=== PATIENT | female | born 1995 | race Caucasian/White ===

== ENCOUNTER 2018-06-23 13:37 | Observation (INO) ==
[2018-06-23] MEDS ORDERED: LACTATED RINGERS 1,000 ML IV ONE ×2 (14:03→15:00)
[2018-06-23 14:54] LABS: Basophils # 0.1 10*3/uL (0.0-0.2); Basophils % 0.6 % (0.0-0.8); Eosinophils # 0.1 10*3/uL (0.0-0.87); Eosinophils % 0.9 % (0.00-10.9); Hematocrit 47.6 VOL% (35.7-47.0); Hemoglobin 17.1 GM/DL (12.0-16.0); Immature Granulocytes % 0.3 %; Immature Granulocytes Absolute 0.03 #; Lymphocytes # 0.9 10*3/uL (1.4-4.0); Lymphocytes % 7.4 % (21.3-54.2); Mean Corpuscular HGB Conc 35.9 GM/DL (32-36); Mean Corpuscular Hemoglobin 30 PG (27-34); Mean Corpuscular Volume 84.7 FL (87-102); Mean Platelet Volume 11.5 FL (9.6-12.0); Monocytes # 0.6 10*3/uL (0.11-0.8); Monocytes % 5.2 % (1.7-12.7); Neutrophils # 10.1 10*3/uL (1.4-7.4); Neutrophils % 85.6 % (38.7-73.9); Platelet Count 237 T/CUMM (130-400); Red Blood Count 5.62 MC/CUMM (3.8-5.5); Red Cell Distribution Width 13.5 % (9.3-17.3); White Blood Count 11.7 T/CUMM (4-12)
[2018-06-23 15:07] LABS: Albumin 5.2 G/DL (3.4-5.0); Calcium 9.8 MG/DL (8.5-10.1); Osmolality,Calculated 266.2 MOS/KG (273-304); Potassium 3.2 MMOL/L (3.5-5.1); Total Protein 9.7 G/DL (6.4-8.3)
[2018-06-23 15:12] LABS: Apearance,Urine Slightly Hazy (Clear); Bacteria,Urine Occasional /HPF (Few); Bilirubin,Urine Negative (Negative); Blood, Urine Negative (Negative); Glucose,Urine (UA) Negative (Negative); Ketones,Urine 80 mg/dL (Negative); Mucus,Urine Occasional /LPF (Occasional); Nitrite,Urine Negative (Negative); Protein,Urine 100 MG/DL; RBC,Urine 5 /HPF (0-4); Squamous Epithelial Cell,Urine Occasional /HPF (0-10); Urine Color Amber (Yellow); Urine Specific Gravity 1.035 (1.001-1.035); WBC,Urine 4 /HPF (0-6)
[2018-06-23] MEDS: ONDANSETRON 4 MG/2 ML VIAL IV PRN (15:19)
[2018-06-23] MEDS: LACTATED RINGERS 1,000 ML IV SCH (16:46)
[2018-06-23] MEDS: POTASSIUM CHLORIDE RIDER 10 MEQ in PREMIX 1 EACH IV PRN ×3 (16:46→22:05)
[2018-06-24] MEDS: POTASSIUM CHLORIDE RIDER 10 MEQ in PREMIX 1 EACH IV PRN (01:07)
[2018-06-24] MEDS: LACTATED RINGERS 1,000 ML IV SCH (02:18)
[2018-06-24] MEDS: ONDANSETRON 4 MG/2 ML VIAL IV PRN (04:01)
[2018-06-24 07:18] VITALS: BP 85/49
== END 2018-06-24 11:00 | disposition home or self-care (01) ==
LOC: N.LDOUT 13:37 → N.OB 13:37 → UNDODEPREF 06-24 11:44
PROVIDERS: ADMIT Specialist; ATTEND Specialist

== ENCOUNTER 2018-07-15 14:34 | Inpatient (IN) ==
[2018-07-15] MEDS ORDERED: LACTATED RINGERS 1,000 ML IV ONE ×2 (15:04→16:00)
[2018-07-15 15:08] LABS: Basophils # 0.1 10*3/uL (0.0-0.2); Basophils % 0.5 % (0.0-0.8); Eosinophils # 0.4 10*3/uL (0.0-0.87); Eosinophils % 3.8 % (0.00-10.9); Hematocrit 42.3 VOL% (35.7-47.0); Hemoglobin 14.8 GM/DL (12.0-16.0); Immature Granulocytes % 0.4 %; Immature Granulocytes Absolute 0.04 #; Lymphocytes # 1.1 10*3/uL (1.4-4.0); Lymphocytes % 10.3 % (21.3-54.2); Mean Corpuscular Hemoglobin 31 PG (27-34); Mean Platelet Volume 10.5 FL (9.6-12.0); Monocytes # 0.5 10*3/uL (0.11-0.8); Monocytes % 4.5 % (1.7-12.7); Neutrophils # 8.4 10*3/uL (1.4-7.4); Neutrophils % 80.5 % (38.7-73.9); Platelet Count 217 T/CUMM (130-400); Red Blood Count 4.86 MC/CUMM (3.8-5.5); Red Cell Distribution Width 14.1 % (9.3-17.3); White Blood Count 10.4 T/CUMM (4-12)
[2018-07-15 15:26] LABS: Albumin 3.9 G/DL (3.4-5.0); Bilirubin,Total 0.7 MG/DL (0.2-1.0); Calcium 9.3 MG/DL (8.5-10.1); Potassium 3.4 MMOL/L (3.5-5.1); Total Protein 8.1 G/DL (6.4-8.3)
[2018-07-15] MEDS: ONDANSETRON 4 MG/2 ML VIAL IV PRN (16:15)
[2018-07-15] MEDS: LACTATED RINGERS 1,000 ML IV SCH (17:15)
[2018-07-15] MEDS ORDERED: DOCUSATE SODIUM 100 MG CAPSULE PO PRN (17:53)
[2018-07-15] MEDS ORDERED: ACETAMINOPHEN 325 MG TABLET PO PRN (17:54)
[2018-07-15 23:05] LABS: Apearance,Urine CLOUDY (Clear); Bilirubin,Urine Negative (Negative); Blood, Urine Negative (Negative); Glucose,Urine (UA) Negative (Negative); Ketones,Urine Negative (Negative); Nitrite,Urine Negative (Negative); Protein,Urine Negative; Squamous Epithelial Cell,Urine Occasional /HPF (0-10); Urine Color Yellow (Yellow); Urine Specific Gravity 1.014 (1.001-1.035); WBC,Urine 2 /HPF (0-6)
[2018-07-16] MEDS: LACTATED RINGERS 1,000 ML IV SCH ×2 (01:15→08:54)
[2018-07-16] MEDS: ONDANSETRON 4 MG/2 ML VIAL IV PRN ×3 (01:15→19:45)
[2018-07-17 08:00] VITALS: BP 81/46
[2018-07-17] MEDS: ONDANSETRON 4 MG/2 ML VIAL IV PRN (08:06)
== END 2018-07-17 10:35 | disposition home or self-care (01) | DRG 566 ==
LOC: N.LDOUT 14:34 → N.OB 14:36 → UNDODEPREF 07-17 10:40
PROVIDERS: ADMIT Specialist; ATTEND Specialist

== ENCOUNTER 2019-01-24 21:51 | Inpatient (IN) ==
[2019-01-24] MEDS ORDERED: MEPERIDINE 50 MG/1 ML VIAL IV PRN (22:03)
[2019-01-24] MEDS ORDERED: BUTORPHANOL 2 MG/ML VIAL IV PRN (22:03)
[2019-01-24] MEDS ORDERED: ONDANSETRON 4 MG/2 ML VIAL IV PRN (22:03)
[2019-01-24 22:21] LABS: Basophils # 0.1 10*3/uL (0.0-0.2); Basophils % 0.7 % (0.0-0.8); Eosinophils # 0.4 10*3/uL (0.0-0.87); Eosinophils % 3.4 % (0.00-10.9); Hematocrit 32.4 VOL% (35.7-47.0); Immature Granulocytes Absolute 0.12 #; Lymphocytes # 1.6 10*3/uL (1.4-4.0); Lymphocytes % 13.7 % (21.3-54.2); Mean Corpuscular Volume 83.9 FL (87-102); Mean Platelet Volume 11.1 FL (9.6-12.0); Monocytes % 5.9 % (1.7-12.7); Neutrophils % 75.3 % (38.7-73.9); Platelet Count 158 T/CUMM (130-400); Red Blood Count 3.86 MC/CUMM (3.8-5.5); Red Cell Distribution Width 17.6 % (9.3-17.3); White Blood Count 11.8 T/CUMM (4-12)
[2019-01-24] MEDS: LACTATED RINGERS 1,000 ML IV SCH (22:30)
[2019-01-24 22:48] LABS: Albumin 2.9 G/DL (3.4-5.0); Bilirubin,Total 0.4 MG/DL (0.2-1.0); Calcium 9.1 MG/DL (8.5-10.1); Osmolality,Calculated 275.7 MOS/KG (273-304)
[2019-01-25] MEDS ORDERED: OXYTOCIN/LR 20 UNIT/1,000 ML BAG IV SCH (05:00)
[2019-01-25] MEDS: LACTATED RINGERS 1,000 ML IV SCH (05:26)
[2019-01-25] MEDS ORDERED: CITRIC ACID/SODIUM CITRATE 30 ML UDCUP PO ONE (07:29)
[2019-01-25] MEDS ORDERED: LACTATED RINGERS 1,000 ML IV ONE (07:29)
[2019-01-25] MEDS ORDERED: NALOXONE 0.4 MG/ML VIAL IV PRN (07:29)
[2019-01-25] MEDS ORDERED: diphenhydrAMINE 50 MG/1 ML VIAL IV PRN ×2 (07:29)
[2019-01-25] MEDS ORDERED: ePHEDrine 50 MG/ML AMP IV PRN (07:29)
[2019-01-25] MEDS ORDERED: FAMOTIDINE 20 MG/2 ML VIAL IV ONE (07:29)
[2019-01-25] MEDS ORDERED: fentaNYL 2 MCG/ROPIV 0.2% EPID 100 ML EPIDURAL SCH (07:30)
[2019-01-25] MEDS ORDERED: ROPIVACAINE 0.5% 30 ML VIAL ONE (09:15)
[2019-01-25] MEDS ORDERED: fentaNYL 100 MCG/2 ML VIAL ONE (09:16)
[2019-01-25 10:27] LABS: Apearance,Urine CLEAR (Clear); Bilirubin,Urine Negative (Negative); Blood, Urine Negative (Negative); Glucose,Urine (UA) Negative (Negative); Ketones,Urine Negative (Negative); Mucus,Urine Occasional /LPF (Occasional); Nitrite,Urine Negative (Negative); Protein,Urine Negative; RBC,Urine 6 /HPF (0-4); Squamous Epithelial Cell,Urine Occasional /HPF (0-10); Urine Color Yellow (Yellow); Urine Specific Gravity 1.027 (1.001-1.035); WBC,Urine <1 /HPF (0-6)
[2019-01-25] MEDS ORDERED: METHYLERGONOVINE 0.2 MG/1 ML AMP ONE (11:55)
[2019-01-25] MEDS ORDERED: miSOPROStol 200 MCG TABLET ONE (11:55)
[2019-01-25] MEDS ORDERED: LANOLIN 50% CREAM 0.3 OZ TUBE TOP PRN (12:16)
[2019-01-25] MEDS ORDERED: ACETAMINOPHEN 325 MG TABLET PO PRN (12:16)
[2019-01-25] MEDS ORDERED: OXYTOCIN/LR 20 UNIT/1,000 ML BAG IV ONE (12:16)
[2019-01-25] MEDS ORDERED: RHO(D) IMMUNE GLOBULIN 300 MCG SYRINGE IM ONE (12:16)
[2019-01-25] MEDS ORDERED: WITCH HAZEL PADS 100/JAR TOP PRN (12:16)
[2019-01-25] MEDS ORDERED: DIPH/TET/ACEL PERT BOOSTER VACCINE 0.5 ML VIAL IM ONE (12:16)
[2019-01-25] MEDS ORDERED: BISACODYL 10 MG SUPP RECTAL PRN (12:16)
[2019-01-25] MEDS ORDERED: BENZOCAINE 20%/MENTHOL 0.5% SPRAY 56 GM CAN TOP PRN (12:16)
[2019-01-25] MEDS ORDERED: MEASLES/MUMPS/RUBELLA VACCINE 0.5 ML VIAL SUBCUT ONE (12:16)
[2019-01-25] MEDS ORDERED: HYDROCORTISONE 2.5% RECTAL CREAM 30 GM TUBE TOP PRN (12:16)
[2019-01-25] MEDS ORDERED: ONDANSETRON 4 MG/2 ML VIAL IV PRN (12:16)
[2019-01-25] MEDS: IBUPROFEN 800 MG TABLET PO PRN (14:09)
[2019-01-25] MEDS: oxyCODONE/ACETAMINOPHEN 5-325 MG TABLET PO PRN ×2 (16:32→22:11)
[2019-01-25] MEDS: DOCUSATE SODIUM 100 MG CAPSULE PO SCH (22:11)
[2019-01-26] MEDS: oxyCODONE/ACETAMINOPHEN 5-325 MG TABLET PO PRN ×3 (05:05→20:03)
[2019-01-26 06:05] LABS: Basophils # 0.1 10*3/uL (0.0-0.2); Basophils % 0.8 % (0.0-0.8); Eosinophils # 0.4 10*3/uL (0.0-0.87); Eosinophils % 3.6 % (0.00-10.9); Hematocrit 29.5 VOL% (35.7-47.0); Hemoglobin 9.7 GM/DL (12.0-16.0); Immature Granulocytes % 0.8 %; Immature Granulocytes Absolute 0.08 #; Lymphocytes # 1.7 10*3/uL (1.4-4.0); Lymphocytes % 15.7 % (21.3-54.2); Mean Corpuscular HGB Conc 32.9 GM/DL (32-36); Mean Corpuscular Volume 86.5 FL (87-102); Mean Platelet Volume 11.3 FL (9.6-12.0); Neutrophils % 74.1 % (38.7-73.9); Red Blood Count 3.41 MC/CUMM (3.8-5.5); Red Cell Distribution Width 17.6 % (9.3-17.3); White Blood Count 10.5 T/CUMM (4-12)
[2019-01-26 06:06] LABS: Platelet Count 103 T/CUMM (130-400)
[2019-01-26] MEDS: IBUPROFEN 800 MG TABLET PO PRN (09:30)
[2019-01-26] MEDS: DOCUSATE SODIUM 100 MG CAPSULE PO SCH ×2 (09:32→20:03)
[2019-01-27] MEDS: oxyCODONE/ACETAMINOPHEN 5-325 MG TABLET PO PRN (04:50)
[2019-01-27 07:45] VITALS: BP 119/69
[2019-01-27] MEDS: DOCUSATE SODIUM 100 MG CAPSULE PO SCH (09:04)
== END 2019-01-27 12:40 | disposition home or self-care (01) | DRG 560 ==
LOC: N.LD 21:51 → N.OB 01-25 15:29
PROVIDERS: ADMIT Specialist; ATTEND Specialist